=== PATIENT | female | born 1995 | race Caucasian/White ===

== ENCOUNTER 2017-02-13 22:24 | Emergency (ER) | payer OTHER ==
[~2017-02-13 22:24] MED LIST: LOVENOX SY40 MG/0.4 SQ; PERCOCET 5/325 T1 EA PO
== END 2017-02-14 01:25 | disposition left against medical advice (07) ==
LOC: ER1 22:24
DX: Z53.21 Procedure and treatment not carried out due to patient leaving prior to being seen by health care provider (principal)

== ENCOUNTER 2017-02-22 17:57 | Emergency (ER) | payer OTHER ==
[2017-02-22 20:17] LABS: HEMOGLOBIN 13.6 gm/dl (12.3-15.3); RED BLOOD COUNT 5.07 M/UL (4.00-5.10); WHITE BLOOD COUNT 15.2 K/UL (4.5-11.0)
[2017-02-22 20:36] LABS: BUN/CREATININE RATIO 22 (0-10)
== END 2017-02-22 20:50 | disposition home or self-care (01) ==
LOC: ER1 17:57
PROVIDERS: Physician Assistant Medical
DX: J20.9 Acute bronchitis, unspecified (principal); J45.909 Unspecified asthma, uncomplicated; E11.9 Type 2 diabetes mellitus without complications
CPT/HCPCS: 36415; 71020; 80048; 85025; 94640; 94664; 99283

== ENCOUNTER 2021-04-17 23:36 | Emergency (ER) | payer OTHER ==
[~2021-04-17 23:36] MED LIST changes: +ALBUTEROL2.5 MG/3 M INH; +AZITHROMYCIN250 MG PO; +BACTROBAN OINT22 GM EXT; +CEFUROXIME500 MG PO; +IBUPROFEN600 MG PO; +MEDROL4 MG PO; +NAPROSYN500 MG PO; +NORCO 7.5-3251 EACH PO; +PREDNISONE20 MG PO; +PROVENTIL HFA6.7 GM INH
[2021-04-18] MEDS ORDERED: ZOFRAN ODT 4 MG4 MG SL (04:48)
[2021-04-18] MEDS ORDERED: IBUPROFEN600 MG PO (04:48)
== END 2021-04-18 05:00 | disposition home or self-care (01) ==
LOC: ER1 23:36
DX: B34.9 Viral infection, unspecified (principal); R73.9 Hyperglycemia, unspecified; Z20.822 Contact with and (suspected) exposure to COVID-19
CPT/HCPCS: 0240U; 71045; 81001; 82962; 84703; 87081; 87880; 96372; 99284; J1100

== ENCOUNTER 2021-07-24 22:33 | Emergency (ER) | payer OTHER ==
[~2021-07-24] VITALS: Ht 170.2 cm; Wt 108.9 kg
[~2021-07-24 22:33] MED LIST changes: +ZOFRAN ODT 4 MG4 MG SL
[2021-07-25 00:31] LABS: BUN/CREATININE RATIO 22 (0-10)
[2021-07-25 00:56] LABS: HEMOGLOBIN 13.7 gm/dl (12.3-15.3); RED BLOOD COUNT 5.18 M/UL (4.00-5.10); WHITE BLOOD COUNT 7.2 K/UL (4.5-11.0)
[2021-07-25] MEDS ORDERED: LODINE CAP 300300 MG PO (01:01)
[2021-07-25] MEDS ORDERED: VENTOLIN HFA 66.7 GM INH (01:01)
== END 2021-07-25 02:35 | disposition home or self-care (01) ==
LOC: ER1 22:33
PROVIDERS: Physician Assistant
DX: Z23 Encounter for immunization (principal); U07.1 COVID-19; Z91.013 Allergy to seafood; E11.9 Type 2 diabetes mellitus without complications; E78.5 Hyperlipidemia, unspecified
CPT/HCPCS: 71045; 80053; 82550; 82553; 83874; 83880; 84484; 85025; 85379; 85610; 85730; 93005; 99285; M0243

== ENCOUNTER → 2022-01-25 | Outpatient (CLI) | payer OTHER ==
[~2022-01-25] MED LIST changes: +LODINE CAP 300300 MG PO; +VENTOLIN HFA 66.7 GM INH
== END ==
LOC: EMI 14:30
DX: R29.898 Other symptoms and signs involving the musculoskeletal system (principal)
CPT/HCPCS: 70551

== ENCOUNTER 2022-05-14 03:13 | Emergency (ER) | payer OTHER ==
[2022-05-14 03:36] LABS: HEMOGLOBIN 15.1 gm/dl (12.3-15.3); RED BLOOD COUNT 5.53 M/UL (4.00-5.10); WHITE BLOOD COUNT 12.4 K/UL (4.5-11.0)
[2022-05-14 03:57] LABS: BUN/CREATININE RATIO 33 (0-10)
[2022-05-14] MEDS ORDERED: ZOFRAN ODT 4 MG4 MG GT (08:05)
== END 2022-05-14 08:16 | disposition home or self-care (01) ==
LOC: ER1 03:13
PROVIDERS: Emergency Medicine
DX: A08.4 Viral intestinal infection, unspecified (principal); E11.9 Type 2 diabetes mellitus without complications; F17.200 Nicotine dependence, unspecified, uncomplicated; Z79.84 Long term (current) use of oral hypoglycemic drugs; Z91.013 Allergy to seafood
CPT/HCPCS: 80053; 81001; 83690; 84703; 85025; 96361; 96374; 96375; 99284; C9113; J2405